=== PATIENT | female | born 1980 | race Caucasian/White ===

== ENCOUNTER 2017-05-04 15:27 | Emergency (ER) | payer BC ==
[~2017-05-04] VITALS: Ht 165.1 cm; Wt 67.1 kg
[2017-05-04] MEDS ORDERED: IV NORMAL SALINE 1000ML BAG 1,000 ML IV SCH (15:35)
[2017-05-04] MEDS ORDERED: ONDANSETRON PF 4 MG/2 ML VIAL. IV ONE (15:45)
[2017-05-04] MEDS ORDERED: FAMOTIDINE 20 MG/2 ML VIAL IVP ONE (15:45)
[2017-05-04 15:58] LABS: BASO # 0.1 x10^3/uL (0.0-0.2); BASO % 1 % (0-3); EOS % 0 % (0-3); HEMATOCRIT 43.1 % (36.0-47.0); LYMPH # 5.2 x10^3/uL (1.0-4.8); LYMPH % 48 % (24-48); MEAN CORPUSCULAR HEMOGLOBIN 35 pg (25-35); MEAN CORPUSCULAR HGB CONC 35 g/dL (31-37); MEAN CORPUSCULAR VOLUME 100 fL (79-100); MONO % 6 % (0-9); NEUT % 45 % (31-73); PLATELET COUNT 473 x10^3/uL (140-400); RED CELL DISTRIBUTION WIDTH 17.5 % (11.5-14.5); WHITE BLOOD COUNT 10.7 x10^3/uL (4.0-11.0)
[2017-05-04] MEDS: fentaNYL PF VIAL 100 MCG/2 ML VIAL IV PRN ×2 (16:02→16:38)
--- NOTE | 2017-05-04 16:15 | PHYS DOC ---
Past Medical History Past Medical History: Hypertension, Other Additional Past Medical Histor: ovarian cysts Past Surgical History: Other Additional Past Surgical Histo: cyst in R breast Alcohol Use: Occasionally Drug Use: None Adult General Chief Complaint Chief Complaint: ABDOMINAL PAIN HPI HPI Patient is a 37 year old female who presents with complaint of right lower quadrant and pelvic pain for the past 2 days. Patient states that the pain came on suddenly and is quite severe at this time. Patient states that she has been having difficulty sleeping secondary to her pain. Patient rates her pain currently is 10 out of 10. Patient denies any associated vomiting, bloody stools , or constipation. Patient states that the pain radiates towards her right pelvis. Patient has not taken any medications to help with symptoms at this time. Patient states that the pain does worsen with movement. Patient went to her primary care physician's office where she underwent a pelvic exam that noted no abnormal discharge but did note cervical motion tenderness. Patient was referred to the emergency department as she was unable to provide a urine sample and they were unable to determine her status. Patient states that they were concerned about possible appendicitis or possible tubal as a cause for her symptoms. The patient states that she is currently on her menstrual cycle. Review of Systems Review of Systems Constitutional: Denies fever or chills [] Eyes: Denies change in visual acuity, redness, or eye pain [] HENT: Denies nasal congestion or sore throat [] Respiratory: Denies cough or shortness of breath [] Cardiovascular: No additional information not addressed in HPI [] GI: Abdominal pain [] : Pelvic pain [] Musculoskeletal: Denies back pain or joint pain [] Integument: Denies rash or skin lesions [] Neurologic: Denies headache, focal weakness or sensory changes [] Current Medications Current Medications Current Medications Medications (Trade) Dose Ordered Sig/Rubin Start Time Stop Time Status Last Admin Dose Admin Famotidine (Pepcid) 20 mg 1X ONCE 05/04/17 15:45 05/04/17 15:46 DC 05/04/17 16:03 20 MG Fentanyl Citrate (Fentanyl 2ml Vial) 50 mcg PRN Q15MIN PRN 05/04/17 15:45 05/04/17 18:26 DC 05/04/17 16:38 50 MCG Info (Do NOT chart on this entry -- for MONITORING) 1 each PRN DAILY PRN 05/04/17 16:45 6/6/17 18:26 DC Iohexol (Omnipaque 240 Mg/ml) 30 ml 1X ONCE 05/04/17 17:00 05/04/17 17:01 DC 05/04/17 17:27 30 ML Iohexol (Omnipaque 300 Mg/ml) 75 ml 1X ONCE 05/04/17 17:00 05/04/17 17:01 DC 05/04/17 17:26 75 ML Ondansetron HCl (Zofran) 4 mg 1X ONCE 05/04/17 15:45 05/04/17 15:46 DC 05/04/17 16:01 4 MG Sodium Chloride 1,000 ml @ 1,000 mls/hr Q1H 05/04/17 15:35 05/04/17 16:34 DC 05/04/17 16:01 1,000 MLS/HR Allergies Allergies Allergies Coded Allergies Type Severity Reaction Last Updated Verified amoxicillin Allergy Intermediate Rash 05/04/17 Yes Physical Exam Physical Exam Constitutional: Alert, afebrile, appears in moderate to severe discomfort. [] HENT: Normocephalic, atraumatic, bilateral external ears normal, oropharynx moist, no oral exudates, nose normal. [] Eyes: PERRLA, EOMI, conjunctiva normal, no discharge. [] Neck: Normal range of motion, no tenderness, supple, no stridor. [] Cardiovascular:Heart rate regular rhythm, no murmur [] Lungs & Thorax: Bilateral breath sounds clear to auscultation [] Abdomen: Bowel sounds normal, soft, right lower quadrant tenderness to palpation with guarding, no rebound tenderness, no masses, no pulsatile masses. [] Skin: Warm, dry, no erythema, no rash. [] Back: No tenderness, no CVA tenderness. [] Extremities: No tenderness, no cyanosis, no clubbing, ROM intact, no edema. [] Neurologic: Alert and oriented X 3, normal motor function, normal sensory function, no focal deficits noted. [] Current Patient Data Vital Signs Vital Signs Date Time Temp Pulse Resp B/P (MAP) Pulse Ox O2 Delivery O2 Flow Rate FiO2 05/04/17 18:17 88 16 119/71 (87) 97 Room Air 05/04/17 15:34 98.5 98.5 Lab Values Laboratory Tests Test 05/04/17 13:50 White Blood Count 10.7 x10^3/uL (4.0-11.0) Red Blood Count 4.30 x10^6/uL (3.50-5.40) Hemoglobin 15.0 g/dL (12.0-15.5) Hematocrit 43.1 % (36.0-47.0) Mean Corpuscular Volume 100 fL (79-100) Mean Corpuscular Hemoglobin 35 pg (25-35) Mean Corpuscular Hemoglobin Concent 35 g/dL (31-37) Red Cell Distribution Width 17.5 % (11.5-14.5) H Platelet Count 473 x10^3/uL (140-400) H Neutrophils (%) (Auto) 45 % (31-73) Lymphocytes (%) (Auto) 48 % (24-48) Monocytes (%) (Auto) 6 % (0-9) Eosinophils (%) (Auto) 0 % (0-3) Basophils (%) (Auto) 1 % (0-3) Neutrophils # (Auto) 4.8 x10^3uL (1.8-7.7) Lymphocytes # (Auto) 5.2 x10^3/uL (1.0-4.8) H Monocytes # (Auto) 0.7 x10^3/uL (0.0-1.1) Eosinophils # (Auto) 0.0 x10^3/uL (0.0-0.7) Basophils # (Auto) 0.1 x10^3/uL (0.0-0.2) Sodium Level 142 mmol/L (136-145) Potassium Level 4.1 mmol/L (3.5-5.1) Chloride Level 102 mmol/L (98-107) Carbon Dioxide Level 20 mmol/L (21-32) L Anion Gap 20 (6-14) H Blood Urea Nitrogen 15 mg/dL (7-20) Creatinine 0.8 mg/dL (0.6-1.0) Estimated GFR (Cockcroft-Gault) 81.2 BUN/Creatinine Ratio 19 (6-20) Glucose Level 117 mg/dL (70-99) H Calcium Level 8.7 mg/dL (8.5-10.1) Total Bilirubin 0.5 mg/dL (0.2-1.0) Aspartate Amino Transferase (AST) 43 U/L (15-37) H Alanine Aminotransferase (ALT) 46 U/L (14-59) Alkaline Phosphatase 62 U/L (46-116) Total Protein 8.1 g/dL (6.4-8.2) Albumin 3.9 g/dL (3.4-5.0) Albumin/Globulin Ratio 0.9 (1.0-1.7) L Lipase 68 U/L (73-393) L Serum Test, Qualitative Negative (NEG) Laboratory Tests 05/04/17 13:50 Laboratory Tests 05/04/17 13:50 EKG EKG Not performed [] Radiology/Procedures Radiology/Procedures [address] [address] IMAGING REPORT Signed PATIENT: WILBERT PEREZ ACCOUNT: [id number] : 1980 LOCATION: ER AGE: 37 SEX: F EXAM STATUS: REG ER ORD. PHYSICIAN: CHITRA NGUYEN MD REASON: right adnexal pain PROCEDURE: PELVIS W/TV Indication right adnexal pain. Initially transabdominal scans were obtained. The initial transabdominal scans were supplemented with transvaginal scans. HCG status is uncertain but for the purposes of this examination will be assumed to be negative. The uterus measures approximately 7.6 x 4.8 x 3.8 cm. Endometrial thickness is approximately 11 mm. No significant free fluid was seen in the pelvis. There is a hypoechoic mass seen associated with the left ovary measuring approximately 2 cm in greatest dimension compatible with a dominant physiologic cyst. The right ovary appeared normal. Flow was seen associated with both ovaries. IMPRESSION: Unremarkable uterus endometrium and right ovary. Dominant physiologic cyst associated with the left ovary. DICTATED and SIGNED BY: MERRITT HOGAN MD DATE: 05/04/171655 CC: CHITRA NGUYEN MD; MELCHOR ALEXANDER MD ~ [address] [address] IMAGING REPORT Signed PATIENT: WILBERT PEREZ ACCOUNT: [id number] : 1980 LOCATION: ER AGE: 37 SEX: F EXAM STATUS: REG ER ORD. PHYSICIAN: CHITRA NGUYEN MD REASON: right lower quadrant pain for 2 days PROCEDURE: CT ABD PELV W/ORAL&IV CONTRAST Exam performed: CT scan of the abdomen and pelvis with contrast Clinical Indication: Severe right lower quadrant pain for 2 days Date of Service: 05/04/2017, comparison: No relevant previous exams available for comparison Technique: Contiguous helical acquisitions are obtained from the lung bases to the pelvis during intravenous administration of [75 mL of Omnipaque 300]. In addition oral contrast was also given. Sagittal and coronal reformatted images were obtained and reviewed. CT abdomen findings: The lung bases appear essentially clear. Visualized heart is normal The liver, spleen ,gall bladder and pancreas appears unremarkable. Both adrenal glands and bilateral kidneys appear normal with symmetric excretion of contrast via both kidneys. The small bowel loops appear nondilated and unremarkable. There is no retroperitoneal lymphadenopathy or mass lesions. Mild wall thickening of the ascending colon including cecum is noted. The ileocecal junction and the terminal ileum appear grossly normal. Visualized appendix is normal. No obvious stranding is seen in the pericecal region. CT pelvis findings: The pelvic bowel loops are nondilated and unremarkable. The urinary bladder is well distended and normal . Uterus is anteverted. No adnexal masses seen. Interrogation of bone windows demonstrates no obvious bony abnormality. Sagittal and coronal reformatted images were obtained and reviewed which demonstrate no additional findings. Impression abdomen and pelvis : 1. Mild wall thickening of the ascending colon including the cecum. Findings may be related to mild colitis. 2. Visualized Appendix is normal. PQRS Compliance Statement: One or more of the following individualized dose reduction techniques were utilized for this examination: 1. Automated exposure control 2. Adjustment of the mA and/or kV according to patient size 3. Use of iterative reconstruction technique Electronically signed by: Brunilda Kulkarni MD (05/04/2017 5:39 PM) DICTATED and SIGNED BY: BRUNILDA KULKARNI MD DATE: 05/04/17 1737 CC: CHITRA NGUYEN MD; MELCHOR ALEXANDER MD ~ [] Course & Med Decision Making Course & Med Decision Making Pertinent Labs and Imaging studies reviewed. (See chart for details) Patient's serum test was negative. Patient had low volume in her bladder as evidenced by bedside and performed and interpreted by myself. Patient underwent ultrasound imaging and CT imaging. The patient had no noted abnormalities of her reproductive organs on ultrasound but did show evidence of ascending colitis. On reevaluation after fluids and pain medication were given, the patient states her symptoms have improved at this time. Patient's blood work is otherwise unremarkable. The patient was given options for admission to the hospital versus outpatient treatment. Patient states that she would like to pursue outpatient treatment at this time which is not unreasonable. Patient was given prescriptions for Flagyl, Levaquin, and [place] for treatment. Advise follow -up in 3-4 days with patient's primary doctor and return to emergency department for any worsening symptoms. Patient voiced understanding and in agreement with treatment plan. Dragon Disclaimer Dragon Disclaimer This electronic medical record was generated, in whole or in part, using a voice recognition dictation system. Departure Departure Impression: Primary Impression: Colitis Disposition: 01 HOME, SELF-CARE Condition: STABLE Patient Instructions: Colitis Additional Instructions: Follow-up with your primary doctor in 3-4 days for reevaluation. Return to emergency department for any worsening symptoms. Scripts Ondansetron (ZOFRAN ODT) 4 Mg Tab.rapdis 1 TAB SL Q8HRS Y for NAUSEA/VOMITING, #15 TAB Prov: CHITRA NGUYEN MD 05/04/17 Hydrocodone/Apap 5-325 (NORCO 5-325 TABLET) 1 Each Tablet 1-2 TAB PO Q4-6HRS Y for PAIN, #30 TAB Prov: CHITRA NGUYEN MD 05/04/17 Metronidazole (FLAGYL) 500 Mg Tablet 500 MG PO TID, #30 TAB Prov: CHITRA NGUYEN MD 05/04/17 Levofloxacin (LEVAQUIN) 750 Mg Tablet 1 TAB PO DAILY, #10 TAB Prov: CHITRA NGUYEN MD 05/04/17 CHITRA NGUYEN MD May 04, 2017 16:15
[2017-05-04 16:32] LABS: CALCIUM 8.7 mg/dL (8.5-10.1); CREATININE 0.8 mg/dL (0.6-1.0); GFR 81.2; POTASSIUM 4.1 mmol/L (3.5-5.1)
[2017-05-04 16:34] LABS: NEG OBC SER NEG; POS OBC SER POS
[2017-05-04 16:38] LABS: ALBUMIN 3.9 g/dL (3.4-5.0); ALBUMIN/GLOBULIN RATIO 0.9 (1.0-1.7); TOTAL BILIRUBIN 0.5 mg/dL (0.2-1.0); TOTAL PROTEIN 8.1 g/dL (6.4-8.2)
[2017-05-04] MEDS ORDERED: CONTRAST GIVEN MC PRN (16:45)
[2017-05-04] MEDS ORDERED: IOHEXOL 300 MG/ML 75 ML VIAL IV ONE (17:00)
[2017-05-04] MEDS ORDERED: IOHEXOL 240 MG/ML 50ML VIAL. PO ONE (17:00)
--- NOTE | 2017-05-04 17:01 | RAD ---
Indication right adnexal pain. Initially transabdominal scans were obtained. The initial transabdominal scans were supplemented with transvaginal scans. HCG status is uncertain but for the purposes of this examination will be assumed to be negative. The uterus measures approximately 7.6 x 4.8 x 3.8 cm. Endometrial thickness is approximately 11 mm. No significant free fluid was seen in the pelvis. There is a hypoechoic mass seen associated with the left ovary measuring approximately 2 cm in greatest dimension compatible with a dominant physiologic cyst. The right ovary appeared normal. Flow was seen associated with both ovaries. IMPRESSION: Unremarkable uterus endometrium and right ovary. Dominant physiologic cyst associated with the left ovary.
--- NOTE | 2017-05-04 17:42 | RAD ---
Exam performed: CT scan of the abdomen and pelvis with contrast Clinical Indication: Severe right lower quadrant pain for 2 days Date of Service: 05/04/2017, comparison: No relevant previous exams available for comparison Technique: Contiguous helical acquisitions are obtained from the lung bases to the pelvis during intravenous administration of [75 mL of Omnipaque 300]. In addition oral contrast was also given. Sagittal and coronal reformatted images were obtained and reviewed. CT abdomen findings: The lung bases appear essentially clear. Visualized heart is normal The liver, spleen ,gall bladder and pancreas appears unremarkable. Both adrenal glands and bilateral kidneys appear normal with symmetric excretion of contrast via both kidneys. The small bowel loops appear nondilated and unremarkable. There is no retroperitoneal lymphadenopathy or mass lesions. Mild wall thickening of the ascending colon including cecum is noted. The ileocecal junction and the terminal ileum appear grossly normal. Visualized appendix is normal. No obvious stranding is seen in the pericecal region. CT pelvis findings: The pelvic bowel loops are nondilated and unremarkable. The urinary bladder is well distended and normal . Uterus is anteverted. No adnexal masses seen. Interrogation of bone windows demonstrates no obvious bony abnormality. Sagittal and coronal reformatted images were obtained and reviewed which demonstrate no additional findings. Impression abdomen and pelvis : 1. Mild wall thickening of the ascending colon including the cecum. Findings may be related to mild colitis. 2. Visualized Appendix is normal. PQRS Compliance Statement: One or more of the following individualized dose reduction techniques were utilized for this examination: 1. Automated exposure control 2. Adjustment of the mA and/or kV according to patient size 3. Use of iterative reconstruction technique Electronically signed by: Brunilda Kulkarni MD (05/04/2017 5:39 PM)
[2017-05-04] MEDS ORDERED: LEVO750T31 PO (18:01)
[2017-05-04] MEDS ORDERED: METR500T PO (18:01)
[2017-05-04] MEDS ORDERED: ONDA4TAB10 SL (18:01)
[2017-05-04] MEDS ORDERED: HYDR-971 PO (18:01)
[2017-05-04 18:17] VITALS: BP 119/71
== END 2017-05-04 18:20 | disposition home or self-care (01) ==
LOC: ER 15:27
DX: K52.9 Noninfective gastroenteritis and colitis, unspecified (principal); I10 Essential (primary) hypertension; Z88.1 Allergy status to other antibiotic agents
CPT/HCPCS: 36415; 74177; 76830; 76856; 80053; 83690; 84703; 85027; 96361; 96374; 96375; 96376; 99285; J2405; J3010; J7030; Q9966; Q9967; S0028

== ENCOUNTER 2017-08-21 19:17 | Inpatient (IN) | payer BC ==
[~2017-08-21] VITALS: Ht 165.1 cm; Wt 61.0 kg
[~2017-08-21 19:17] MED LIST: HYDR-971 PO; LEVO750T31 PO; METR500T PO; ONDA4TAB10 SL
[2017-08-21] MEDS ORDERED: IV NORMAL SALINE 1000ML BAG 1,000 ML IV ONE ×2 (20:45→22:30)
[2017-08-21] MEDS ORDERED: ONDANSETRON PF 4 MG/2 ML VIAL. IV ONE (20:45)
--- NOTE | 2017-08-21 20:46 | PHYS DOC ---
Past Medical History Past Medical History: Anxiety, Hypertension, Pancreatitis, Other Additional Past Medical Histor: ovarian cysts, Colitis, C.Diff Past Surgical History: Other Additional Past Surgical Histo: cyst in R breast Alcohol Use: Heavy Drug Use: None Adult General Chief Complaint Chief Complaint: ABDOMINAL PAIN HPI HPI Patient is a 37 year old F who presents with abdominal pain. Patient states she was treated with antibiotics for a sinus infection develop C. difficile and they just change her antibiotics on Wednesday to . Patient states she's having worsening abdominal pain and diarrhea. Patient denies any nausea or vomiting. Patient denies any fevers. Patient has no previous abdominal surgeries. Patient has no other complaints. Review of Systems Review of Systems GEN: Denies fevers, chills, sweats HEENT: Denies blurred vision, sore throat CV: Denies chest pain RESP: Denies shortness of air, cough GI: Abdominal pain with diarrhea NEURO: Denies confusion, dizziness MSK: Denies weakness, joint pain/swelling Current Medications Current Medications Current Medications Medications (Trade) Dose Ordered Sig/Rubin Start Time Stop Time Status Last Admin Dose Admin Fentanyl Citrate (Fentanyl 2ml Vial) 100 mcg STK-MED ONCE 08/21/17 21:17 08/21/17 21:18 DC Info (Do NOT chart on this entry -- for MONITORING) 1 each PRN DAILY PRN 08/21/17 21:00 08/23/17 20:59 Iohexol (Omnipaque 300 Mg/ml) 75 ml 1X ONCE 08/21/17 21:00 08/21/17 21:01 DC 08/21/17 21:30 75 ML Ondansetron HCl (Zofran) 4 mg 1X ONCE 08/21/17 20:45 08/21/17 20:46 DC 08/21/17 20:48 4 MG Sodium Chloride 1,000 ml @ 1,000 mls/hr 1X ONCE 08/21/17 20:45 08/21/17 21:44 DC 08/21/17 20:48 1,000 MLS/HR Allergies Allergies Allergies Coded Allergies Type Severity Reaction Last Updated Verified amoxicillin Allergy Intermediate Rash 05/04/17 Yes Physical Exam Physical Exam GEN.: No apparent distress. Alert and oriented. HEENT: Head is normocephalic, atraumatic NECK: Supple. LUNGS: CTAB. HEART: RRR, S1, S2 present. Peripheral pulses intact ABDOMEN: Soft, generalized tenderness palpation. Positive bowel sounds. EXTREMITIES: Without any cyanosis. NEUROLOGIC: Normal speech, normal tone PSYCHIATRIC: Normal affect, normal mood. SKIN: No ulcerations Current Patient Data Vital Signs Vital Signs Date Time Temp Pulse Resp B/P (MAP) Pulse Ox O2 Delivery O2 Flow Rate FiO2 08/21/17 20:12 98.6 110 24 146/98 (114) 100 Room Air 98.6 Lab Values Laboratory Tests Test 08/21/17 19:25 08/21/17 20:05 08/21/17 20:11 Urine Collection Type Unknown Urine Color Dk yellow Urine Clarity Cloudy Urine pH 6.5 Urine Specific [place] 1.025 Urine Protein 100 mg/dL (NEG-TRACE) Urine Glucose (UA) Negative mg/dL (NEG) Urine Ketones (Stick) 15 mg/dL (NEG) Urine Blood Large (NEG) Urine Nitrite Negative (NEG) Urine Bilirubin Small (NEG) Urine Urobilinogen Dipstick 1.0 mg/dL (0.2 mg/dL) Urine Leukocyte Esterase Moderate (NEG) Urine RBC 3-5 /HPF (0-2) Urine WBC 1-4 /HPF (0-4) Urine Squamous Epithelial Cells Many /LPF Urine Bacteria Many /HPF (0-FEW) Urine Mucus Marked /LPF White Blood Count 13.0 x10^3/uL (4.0-11.0) H Red Blood Count 4.09 x10^6/uL (3.50-5.40) Hemoglobin 14.3 g/dL (12.0-15.5) Hematocrit 41.5 % (36.0-47.0) Mean Corpuscular Volume 102 fL (79-100) H Mean Corpuscular Hemoglobin 35 pg (25-35) Mean Corpuscular Hemoglobin Concent 34 g/dL (31-37) Red Cell Distribution Width 17.5 % (11.5-14.5) H Platelet Count 212 x10^3/uL (140-400) Neutrophils (%) (Auto) 67 % (31-73) Lymphocytes (%) (Auto) 28 % (24-48) Monocytes (%) (Auto) 5 % (0-9) Eosinophils (%) (Auto) 0 % (0-3) Basophils (%) (Auto) 1 % (0-3) Neutrophils # (Auto) 8.7 x10^3uL (1.8-7.7) H Lymphocytes # (Auto) 3.6 x10^3/uL (1.0-4.8) Monocytes # (Auto) 0.6 x10^3/uL (0.0-1.1) Eosinophils # (Auto) 0.0 x10^3/uL (0.0-0.7) Basophils # (Auto) 0.1 x10^3/uL (0.0-0.2) Sodium Level 137 mmol/L (136-145) Potassium Level 3.7 mmol/L (3.5-5.1) Chloride Level 97 mmol/L (98-107) L Carbon Dioxide Level 17 mmol/L (21-32) L Anion Gap 23 (6-14) H Blood Urea Nitrogen 14 mg/dL (7-20) Creatinine 0.9 mg/dL (0.6-1.0) Estimated GFR (Cockcroft-Gault) 70.8 BUN/Creatinine Ratio 16 (6-20) Glucose Level 99 mg/dL (70-99) Calcium Level 9.1 mg/dL (8.5-10.1) Total Bilirubin 1.0 mg/dL (0.2-1.0) Aspartate Amino Transferase (AST) 72 U/L (15-37) H Alanine Aminotransferase (ALT) 37 U/L (14-59) Alkaline Phosphatase 65 U/L (46-116) Total Protein 7.6 g/dL (6.4-8.2) Albumin 3.9 g/dL (3.4-5.0) Albumin/Globulin Ratio 1.1 (1.0-1.7) Lipase 2317 U/L (73-393) H POC Urine HCG, Qualitative Hcg negative (Negative) Laboratory Tests 08/21/17 20:05 Laboratory Tests 08/21/17 20:05 EKG EKG [] Radiology/Procedures Radiology/Procedures CT scan of the abdomen pelvis shows acute appendicitis[] Course & Med Decision Making Course & Med Decision Making Pertinent Labs and Imaging studies reviewed. (See chart for details) ED course Patient was seen and examined emergency room abdominal workup done with CT scan abdomen pelvis 2209: Patient updated on CT findings consistent with acute panic attack this and will redosed pain medication 5: Discussed CC/HP/PMH with Dr. Castellanos and recommends admit [] [] Dragon Disclaimer Dragon Disclaimer This electronic medical record was generated, in whole or in part, using a voice recognition dictation system. Departure Departure Impression: Primary Impression: Acute pancreatitis Disposition: 09 ADMITTED INPATIENT Admitting Physician: Kena Castellanos Referrals: MELCHOR ALEXANDER MD (PCP) NANCY COLLADO DO Aug 21, 2017 20:46
[2017-08-21] MEDS ORDERED: fentaNYL PF VIAL 100 MCG/2 ML VIAL ONE ×2 (20:53→21:17)
[2017-08-21 20:54] LABS: BASO # 0.1 x10^3/uL (0.0-0.2); BASO % 1 % (0-3); EOS % 0 % (0-3); HEMATOCRIT 41.5 % (36.0-47.0); HEMOGLOBIN 14.3 g/dL (12.0-15.5); LYMPH # 3.6 x10^3/uL (1.0-4.8); LYMPH % 28 % (24-48); MEAN CORPUSCULAR HEMOGLOBIN 35 pg (25-35); MEAN CORPUSCULAR HGB CONC 34 g/dL (31-37); MEAN CORPUSCULAR VOLUME 102 fL (79-100); MONO % 5 % (0-9); NEUT % 67 % (31-73); PLATELET COUNT 212 x10^3/uL (140-400); RED BLOOD COUNT 4.09 x10^6/uL (3.50-5.40); RED CELL DISTRIBUTION WIDTH 17.5 % (11.5-14.5)
[2017-08-21 20:56] LABS: BILIRUBIN,URINE SMALL (NEG); GLUCOSE,URINE NEGATIVE (NEG); NITRITE,URINE NEGATIVE (NEG); PH,URINE 6.5; PROTEIN,URINE 100 mg/dL (NEG-TRACE)
[2017-08-21] MEDS ORDERED: CONTRAST GIVEN MC PRN (21:00)
[2017-08-21] MEDS ORDERED: IOHEXOL 300 MG/ML 75 ML VIAL IV ONE (21:00)
[2017-08-21 21:03] LABS: BACTERIA,URINE MANY /HPF (0-FEW); SQUAMOUS EPITHELIAL CELL,UR MANY /LPF
[2017-08-21 21:05] LABS: CALCIUM 9.1 mg/dL (8.5-10.1); CREATININE 0.9 mg/dL (0.6-1.0); GFR 70.8; POTASSIUM 3.7 mmol/L (3.5-5.1)
[2017-08-21 21:12] LABS: ALBUMIN 3.9 g/dL (3.4-5.0); ALBUMIN/GLOBULIN RATIO 1.1 (1.0-1.7); TOTAL PROTEIN 7.6 g/dL (6.4-8.2)
[2017-08-21] MEDS ORDERED: fentaNYL PF VIAL 100 MCG/2 ML VIAL IV ONE ×2 (21:30→22:30)
--- NOTE | 2017-08-21 21:59 | RAD ---
CT scan of the abdomen and pelvis with contrast 08/21/2017 CLINICAL HISTORY: Abdominal pain. TECHNIQUE: After the intravenous administration of 75 cc of Omnipaque 300, contiguous, 5 mm axial sections were obtained through the abdomen and pelvis. One or more of the following individualized dose reduction techniques were utilized for this study: 1. Automated exposure control. 2. Adjustment of the mA and/or kV according to patient size. 3. Use of iterative reconstruction technique. FINDINGS: Comparison study dated 05/04/2017. Images through the lung bases demonstrate subsegmental atelectasis involving the lingula. The liver parenchyma has a decreased attenuation consistent with fatty infiltration. The liver is mildly enlarged measuring 21 cm in length. The spleen, adrenal glands and kidneys are within normal limits. The body and tail of pancreas are enlarged and somewhat poorly defined. Increased density is seen within the adjacent fat. These findings are consistent with acute pancreatitis. No pancreatic pseudocyst is seen. The abdominal aorta tapers normally. The gallbladder is well-distended. No free fluid or free air is seen within the abdomen. There is no evidence of bowel obstruction. The appendix is well-visualized and is within normal limits. Images through the pelvis demonstrate the urinary bladder distended with urine. No adnexal mass is seen. No free fluid is noted. The osseous structures are unchanged. IMPRESSION: Findings consistent with acute pancreatitis. No pancreatic pseudocyst is seen. Electronically signed by: Leonardo Lizarraga MD (08/21/2017 9:55 PM) [facility]
[2017-08-21] MEDS ORDERED: HYDROmorphone 2 MG/ML VIAL IV ONE (22:30)
[2017-08-21] MEDS ORDERED: ONDANSETRON PF 4 MG/2 ML VIAL. IV PRN (22:30)
[2017-08-21] MEDS ORDERED: diphenhydrAMINE 50 MG/ML VIAL IVP ONE (23:15)
[2017-08-21 23:25] VITALS: BP 170/105
[2017-08-21] MEDS: fentaNYL PF VIAL 100 MCG/2 ML VIAL IV PRN (23:58)
[2017-08-22] MEDS ORDERED: MORPHINE SULFATE 4 MG/ML DISP.SYRIN. IV PRN
[2017-08-22] MEDS: IV NORMAL SALINE 1000ML BAG 1,000 ML IV SCH ×4 (00:17→17:30)
[2017-08-22] MEDS ORDERED: ESCITALOPRAM OXA5 MG PO (00:25)
[2017-08-22] MEDS ORDERED: ALPR0.25 PO (00:25)
[2017-08-22] MEDS ORDERED: diphenhydrAMINE 50 MG/ML VIAL IVP ONE (01:15)
[2017-08-22] MEDS: POTASSIUM CL 20MEQ D5-0.9%NACL 1,000 ML IV SCH ×2 (01:20→17:32)
[2017-08-22] MEDS ORDERED: INFLUENZA VAX SCREEN BY RX. MC PRN (02:00)
[2017-08-22] MEDS: diphenhydrAMINE 50 MG/ML VIAL IVP PRN ×4 (02:38→23:27)
[2017-08-22] MEDS: fentaNYL PF VIAL 100 MCG/2 ML VIAL IV PRN (02:38)
[2017-08-22 03:18] VITALS: BP 139/94
[2017-08-22] MEDS ORDERED: MORPHINE SULFATE 10 MG/ML VIAL. IV PRN (04:00)
[2017-08-22] MEDS ORDERED: HYDROmorphone 2 MG/ML VIAL IV PRN (04:00)
[2017-08-22 06:32] LABS: BASO % 0 % (0-3); EOS % 1 % (0-3); HEMATOCRIT 35.4 % (36.0-47.0); HEMOGLOBIN 12.4 g/dL (12.0-15.5); LYMPH # 5.4 x10^3/uL (1.0-4.8); LYMPH % 36 % (24-48); MEAN CORPUSCULAR HEMOGLOBIN 35 pg (25-35); MEAN CORPUSCULAR HGB CONC 35 g/dL (31-37); MEAN CORPUSCULAR VOLUME 101 fL (79-100); MONO % 4 % (0-9); NEUT % 58 % (31-73); PLATELET COUNT 169 x10^3/uL (140-400); RED BLOOD COUNT 3.52 x10^6/uL (3.50-5.40); RED CELL DISTRIBUTION WIDTH 17.4 % (11.5-14.5); WHITE BLOOD COUNT 14.8 x10^3/uL (4.0-11.0)
[2017-08-22 06:35] LABS: CALCIUM 8.4 mg/dL (8.5-10.1); CREATININE 0.8 mg/dL (0.6-1.0); GFR 81.2; POTASSIUM 3.4 mmol/L (3.5-5.1)
[2017-08-22 07:00] VITALS: BP 146/95
[2017-08-22] MEDS ORDERED: PNEUMOCOCCAL VAX SCREEN BY RX. MC PRN (07:15)
[2017-08-22] MEDS ORDERED: PNEUMOC CONJ VACC 23-VALENT 0.5 ML VIAL. VAX IM ONE (09:00)
[2017-08-22] MEDS ORDERED: FLU VACC QS2017-18 (36MOS+)/PF 0.5 ML SYRINGE. VAX IM ONE (09:00)
[2017-08-22 11:00] VITALS: BP 136/95
[2017-08-22] MEDS ORDERED: POTASSIUM CHLORIDE 20 MEQ TABLET.ER. PO ONE (12:30)
[2017-08-22 15:00] VITALS: BP 152/95
--- NOTE | 2017-08-22 15:10 | PDOC1 ---
History and Physical Date of Admission Date of Admission 08/22/17 Identification/Chief Complaint Chief Complaint abd pain Problems: Source Source: Chart review, Patient History of Present Illness History of Present Illness HPI HPI Patient is a 37 year old F who presents with abdominal pain yesterday. pt was here recently for same reason, was treated for alcoholic pancreatitis. She also had cdiff and on flagyl. she said more abd pain and diarrhea, no N/V. Abd pain at middle abd pain, moderate, no radiation. now pt said no abd pain, no N/V, wants to go home. lipse >2000 in ER. denies heavy drinker to me. Past Medical History Past Medical History anxiety htn pancreatitis Past Surgical History Past Surgical History: No pertinent history Family History Family History: Hypertension Social History Smoke: No ALCOHOL: heavy Drugs: None Current Problem List Problem List Problems Medical Problems: (1) Acute pancreatitis Status: Acute Current Medications Current Medications Current Medications Medications (Trade) Dose Ordered Sig/Rubin Start Time Stop Time Status Last Admin Dose Admin Diphenhydramine HCl (Benadryl) 25 mg PRN Q6HRS PRN 08/22/17 00:00 08/22/17 11:14 25 MG Fentanyl Citrate (Fentanyl 2ml Vial) 50 mcg PRN Q1HR PRN 08/21/17 22:30 08/22/17 03:55 DC 08/22/17 02:38 50 MCG Hydromorphone HCl (Dilaudid) 1 mg PRN Q4HRS PRN 08/22/17 04:00 08/22/17 05:01 1 MG Influenza Virus Vaccine Quadrival (Fluarix Quad [id number] Syringe) 0.5 ml ONCE ONCE 08/22/17 09:00 08/22/17 09:01 DC 08/22/17 09:20 0.5 ML Info (Do NOT chart on this entry -- for MONITORING) 1 each PRN DAILY PRN 08/21/17 21:00 08/23/17 20:59 Info (Do NOT chart on this placeholder) 1 each PRN 1X PRN 08/22/17 02:00 Cancel Iohexol (Omnipaque 300 Mg/ml) 75 ml 1X ONCE 08/21/17 21:00 08/21/17 21:01 DC 08/21/17 21:30 75 ML Morphine Sulfate 6 mg PRN Q2HR PRN 08/22/17 04:00 Ondansetron HCl (Zofran) 4 mg PRN Q8HRS PRN 08/21/17 22:30 08/22/17 22:29 08/22/17 00:13 4 MG Pneumococcal Polyvalent Vaccine (Do NOT chart on this placeholder) 1 each PRN 1X PRN 08/22/17 07:15 UNV Pneumococcal Polyvalent Vaccine (Pneumovax 23) 0.5 ml ONCE ONCE 08/22/17 09:00 08/22/17 09:04 DC 08/22/17 09:22 0.5 ML Potassium Chloride (Klor-Con) 40 meq 1X ONCE 08/22/17 12:30 08/22/17 12:31 DC Sodium Chloride 1,000 ml @ 1,000 mls/hr 1X ONCE 08/21/17 22:30 08/21/17 23:29 DC Allergies Allergies Allergies Coded Allergies Type Severity Reaction Last Updated Verified amoxicillin Allergy Intermediate Rash 05/04/17 Yes ROS Review of System CONSTITUTIONAL: No fever or chills EYES: No recent changes SKIN: No rash or itching CARDIOVASCULAR: No chest pain, syncope, palpitations, or edema RESPIRATORY: No SOB or cough GASTROINTESTINAL: No nausea, vomiting or abdominal pain NEUROLOGICAL: No headaches or weakness ENDOCRINE: No cold or heat intolerance GENITOURINARY: No urgency or frequency of urination MUSCULOSKELETAL: No back pain or joint pain LYMPHATICS: No enlarged lymph nodes PSYCHIATRIC: No anxiety or depression Physical Exam Physical Exam GEN.: No apparent distress. Alert and oriented. HEENT: Head is normocephalic, atraumatic NECK: Supple. LUNGS: Clear to auscultation. HEART: RRR, S1, S2 present. Peripheral pulses intact ABDOMEN: Soft, nontender. Positive bowel sounds. EXTREMITIES: Without any cyanosis. NEUROLOGIC: Normal speech, normal tone PSYCHIATRIC: Normal affect, normal mood. SKIN: No ulcerations Vitals Vitals Vital Signs Date Time Temp Pulse Resp B/P (MAP) Pulse Ox O2 Delivery O2 Flow Rate FiO2 08/22/17 11:00 98.8 95 16 136/95 (109) 97 Nasal Cannula 2.0 98.8 Labs Labs Laboratory Tests Test 08/21/17 19:25 08/21/17 20:05 08/21/17 20:11 08/22/17 06:05 Urine Collection Type Unknown Urine Color Dk yellow Urine Clarity Cloudy Urine pH 6.5 Urine Specific [place] 1.025 Urine Protein 100 mg/dL (NEG-TRACE) Urine Glucose (UA) Negative mg/dL (NEG) Urine Ketones (Stick) 15 mg/dL (NEG) Urine Blood Large (NEG) Urine Nitrite Negative (NEG) Urine Bilirubin Small (NEG) Urine Urobilinogen Dipstick 1.0 mg/dL (0.2 mg/dL) Urine Leukocyte Esterase Moderate (NEG) Urine RBC 3-5 /HPF (0-2) Urine WBC 1-4 /HPF (0-4) Urine Squamous Epithelial Cells Many /LPF Urine Bacteria Many /HPF (0-FEW) Urine Mucus Marked /LPF White Blood Count 13.0 x10^3/uL (4.0-11.0) 14.8 x10^3/uL (4.0-11.0) Red Blood Count 4.09 x10^6/uL (3.50-5.40) 3.52 x10^6/uL (3.50-5.40) Hemoglobin 14.3 g/dL (12.0-15.5) 12.4 g/dL (12.0-15.5) Hematocrit 41.5 % (36.0-47.0) 35.4 % (36.0-47.0) Mean Corpuscular Volume 102 fL (79-100) 101 fL (79-100) Mean Corpuscular Hemoglobin 35 pg (25-35) 35 pg (25-35) Mean Corpuscular Hemoglobin Concent 34 g/dL (31-37) 35 g/dL (31-37) Red Cell Distribution Width 17.5 % (11.5-14.5) 17.4 % (11.5-14.5) Platelet Count 212 x10^3/uL (140-400) 169 x10^3/uL (140-400) Neutrophils (%) (Auto) 67 % (31-73) 58 % (31-73) Lymphocytes (%) (Auto) 28 % (24-48) 36 % (24-48) Monocytes (%) (Auto) 5 % (0-9) 4 % (0-9) Eosinophils (%) (Auto) 0 % (0-3) 1 % (0-3) Basophils (%) (Auto) 1 % (0-3) 0 % (0-3) Neutrophils # (Auto) 8.7 x10^3uL (1.8-7.7) 8.6 x10^3uL (1.8-7.7) Lymphocytes # (Auto) 3.6 x10^3/uL (1.0-4.8) 5.4 x10^3/uL (1.0-4.8) Monocytes # (Auto) 0.6 x10^3/uL (0.0-1.1) 0.6 x10^3/uL (0.0-1.1) Eosinophils # (Auto) 0.0 x10^3/uL (0.0-0.7) 0.1 x10^3/uL (0.0-0.7) Basophils # (Auto) 0.1 x10^3/uL (0.0-0.2) 0.0 x10^3/uL (0.0-0.2) Sodium Level 137 mmol/L (136-145) 134 mmol/L (136-145) Potassium Level 3.7 mmol/L (3.5-5.1) 3.4 mmol/L (3.5-5.1) Chloride Level 97 mmol/L (98-107) 100 mmol/L (98-107) Carbon Dioxide Level 17 mmol/L (21-32) 22 mmol/L (21-32) Anion Gap 23 (6-14) 12 (6-14) Blood Urea Nitrogen 14 mg/dL (7-20) 11 mg/dL (7-20) Creatinine 0.9 mg/dL (0.6-1.0) 0.8 mg/dL (0.6-1.0) Estimated GFR (Cockcroft-Gault) 70.8 81.2 BUN/Creatinine Ratio 16 (6-20) Glucose Level 99 mg/dL (70-99) 94 mg/dL (70-99) Calcium Level 9.1 mg/dL (8.5-10.1) 8.4 mg/dL (8.5-10.1) Total Bilirubin 1.0 mg/dL (0.2-1.0) Aspartate Amino Transf (AST/SGOT) 72 U/L (15-37) Alanine Aminotransferase (ALT/SGPT) 37 U/L (14-59) Alkaline Phosphatase 65 U/L (46-116) Total Protein 7.6 g/dL (6.4-8.2) Albumin 3.9 g/dL (3.4-5.0) Albumin/Globulin Ratio 1.1 (1.0-1.7) Lipase 2317 U/L (73-393) Bedside Urine HCG, Qualitative Hcg negative (Negative) Test 08/22/17 14:20 Lipase 3540 U/L (73-393) Laboratory Tests Test 08/21/17 19:25 08/21/17 20:05 08/21/17 20:11 08/22/17 06:05 Urine Collection Type Unknown Urine Color Dk yellow Urine Clarity Cloudy Urine pH 6.5 Urine Specific [place] 1.025 Urine Protein 100 mg/dL (NEG-TRACE) Urine Glucose (UA) Negative mg/dL (NEG) Urine Ketones (Stick) 15 mg/dL (NEG) Urine Blood Large (NEG) Urine Nitrite Negative (NEG) Urine Bilirubin Small (NEG) Urine Urobilinogen Dipstick 1.0 mg/dL (0.2 mg/dL) Urine Leukocyte Esterase Moderate (NEG) Urine RBC 3-5 /HPF (0-2) Urine WBC 1-4 /HPF (0-4) Urine Squamous Epithelial Cells Many /LPF Urine Bacteria Many /HPF (0-FEW) Urine Mucus Marked /LPF White Blood Count 13.0 x10^3/uL (4.0-11.0) 14.8 x10^3/uL (4.0-11.0) Red Blood Count 4.09 x10^6/uL (3.50-5.40) 3.52 x10^6/uL (3.50-5.40) Hemoglobin 14.3 g/dL (12.0-15.5) 12.4 g/dL (12.0-15.5) Hematocrit 41.5 % (36.0-47.0) 35.4 % (36.0-47.0) Mean Corpuscular Volume 102 fL (79-100) 101 fL (79-100) Mean Corpuscular Hemoglobin 35 pg (25-35) 35 pg (25-35) Mean Corpuscular Hemoglobin Concent 34 g/dL (31-37) 35 g/dL (31-37) Red Cell Distribution Width 17.5 % (11.5-14.5) 17.4 % (11.5-14.5) Platelet Count 212 x10^3/uL (140-400) 169 x10^3/uL (140-400) Neutrophils (%) (Auto) 67 % (31-73) 58 % (31-73) Lymphocytes (%) (Auto) 28 % (24-48) 36 % (24-48) Monocytes (%) (Auto) 5 % (0-9) 4 % (0-9) Eosinophils (%) (Auto) 0 % (0-3) 1 % (0-3) Basophils (%) (Auto) 1 % (0-3) 0 % (0-3) Neutrophils # (Auto) 8.7 x10^3uL (1.8-7.7) 8.6 x10^3uL (1.8-7.7) Lymphocytes # (Auto) 3.6 x10^3/uL (1.0-4.8) 5.4 x10^3/uL (1.0-4.8) Monocytes # (Auto) 0.6 x10^3/uL (0.0-1.1) 0.6 x10^3/uL (0.0-1.1) Eosinophils # (Auto) 0.0 x10^3/uL (0.0-0.7) 0.1 x10^3/uL (0.0-0.7) Basophils # (Auto) 0.1 x10^3/uL (0.0-0.2) 0.0 x10^3/uL (0.0-0.2) Sodium Level 137 mmol/L (136-145) 134 mmol/L (136-145) Potassium Level 3.7 mmol/L (3.5-5.1) 3.4 mmol/L (3.5-5.1) Chloride Level 97 mmol/L (98-107) 100 mmol/L (98-107) Carbon Dioxide Level 17 mmol/L (21-32) 22 mmol/L (21-32) Anion Gap 23 (6-14) 12 (6-14) Blood Urea Nitrogen 14 mg/dL (7-20) 11 mg/dL (7-20) Creatinine 0.9 mg/dL (0.6-1.0) 0.8 mg/dL (0.6-1.0) Estimated GFR (Cockcroft-Gault) 70.8 81.2 BUN/Creatinine Ratio 16 (6-20) Glucose Level 99 mg/dL (70-99) 94 mg/dL (70-99) Calcium Level 9.1 mg/dL (8.5-10.1) 8.4 mg/dL (8.5-10.1) Total Bilirubin 1.0 mg/dL (0.2-1.0) Aspartate Amino Transf (AST/SGOT) 72 U/L (15-37) Alanine Aminotransferase (ALT/SGPT) 37 U/L (14-59) Alkaline Phosphatase 65 U/L (46-116) Total Protein 7.6 g/dL (6.4-8.2) Albumin 3.9 g/dL (3.4-5.0) Albumin/Globulin Ratio 1.1 (1.0-1.7) Lipase 2317 U/L (73-393) Bedside Urine HCG, Qualitative Hcg negative (Negative) Test 08/22/17 14:20 Lipase 3540 U/L (73-393) VTE Prophylaxis Ordered VTE Prophylaxis Devices: Yes VTE Pharmacological Prophylaxi: Yes Assessment/Plan Assessment/Plan acute recurrent pancreatitis, likely 2/2 ETOH htn anxiety recent cdiff colitis hypokalemia leukocytosis, SIRS alcoholism plan; npo ivf replete k pain control drug tox dvt, gi ppx check cdiff pt wants to go home, told her cannot since higher lipase, if do , will be AMA admit 2 nights SILVIO PRETTY MD Aug 22, 2017 15:10
[2017-08-22] MEDS ORDERED: HYDROcodone/APAP 5/325MG 1 TAB TABLET PO PRN (15:15)
[2017-08-22] MEDS ORDERED: traMADol 50 MG TABLET PO PRN (15:15)
[2017-08-22] MEDS ORDERED: ONDANSETRON PF 4 MG/2 ML VIAL. IV PRN (15:15)
[2017-08-22] MEDS ORDERED: ACETAMINOPHEN 325 MG TABLET. PO PRN (15:15)
[2017-08-22] MEDS ORDERED: hydrALAZINE 20 MG/ML VIAL. IVP PRN (15:15)
[2017-08-22] MEDS ORDERED: DOCUSATE SODIUM 100 MG CAPSULE. PO PRN (15:15)
[2017-08-22] MEDS ORDERED: IV NORMAL SALINE 1000ML BAG 1,000 ML IV SCH (16:00)
[2017-08-22] MEDS: ENOXAPARIN 40 MG/0.4 ML SYRINGE. SQ SCH (16:00)
[2017-08-22 19:25] VITALS: BP 164/89
[2017-08-22] MEDS: MORPHINE SULFATE 4 MG/ML DISP.SYRIN. IV PRN ×2 (20:23→23:19)
[2017-08-22] MEDS ORDERED: FAMOTIDINE 20 MG/2 ML VIAL IVP SCH (21:00)
[2017-08-22] MEDS: ALPRAZolam 0.25 MG TABLET PO PRN (21:20)
[2017-08-22 23:28] VITALS: BP 129/90
[2017-08-23] MEDS: HYDROmorphone 2 MG/ML VIAL IV PRN ×3 (01:25→21:51)
[2017-08-23 03:30] VITALS: BP 130/92
[2017-08-23] MEDS: diphenhydrAMINE 50 MG/ML VIAL IVP PRN ×3 (04:32→22:34)
[2017-08-23] MEDS: MORPHINE SULFATE 4 MG/ML DISP.SYRIN. IV PRN ×2 (04:33→17:55)
[2017-08-23 07:00] VITALS: BP 125/85
[2017-08-23 07:09] LABS: BASO % 0 % (0-3); EOS % 1 % (0-3); HEMOGLOBIN 11.2 g/dL (12.0-15.5); LYMPH # 2.6 x10^3/uL (1.0-4.8); LYMPH % 31 % (24-48); MEAN CORPUSCULAR HEMOGLOBIN 36 pg (25-35); MEAN CORPUSCULAR HGB CONC 36 g/dL (31-37); MEAN CORPUSCULAR VOLUME 101 fL (79-100); MONO % 3 % (0-9); NEUT % 65 % (31-73); PLATELET COUNT 129 x10^3/uL (140-400); RED BLOOD COUNT 3.08 x10^6/uL (3.50-5.40); RED CELL DISTRIBUTION WIDTH 16.8 % (11.5-14.5); WHITE BLOOD COUNT 8.6 x10^3/uL (4.0-11.0)
[2017-08-23 07:34] LABS: CALCIUM 8.4 mg/dL (8.5-10.1); CREATININE 0.6 mg/dL (0.6-1.0); GFR 113.1; POTASSIUM 3.6 mmol/L (3.5-5.1)
[2017-08-23] MEDS ORDERED: CITALOPRAM 10 MG TABLET. PO SCH (09:00)
--- NOTE | 2017-08-23 09:20 | PDOC ---
PROGRESS NOTES Chief Complaint Chief Complaint Pancreatitis ASSESSMENT AND PLAN: 1. Pancreatitis: acute, recurrent, prob EtOH related. Lipase worsening. monitor, check Ca, LDH 2. EtOH dependence: start CIWA 3. Hypokalemia: repleted 4. Hyponatremia: mild. on NS IV 5. Leukocytosis: resolved 6. Anemia: macrocytic. most likely 2/2 EtOH. check B12, folate 7. thrombocytopenia: suspect EtOH related. monitor closely. 7. HTN: stable 8. Anxiety: on celexa, increase dose to 20mg 9. Prophylaxis: Pepcid, incease to bid. lovenox 10. recent C.diff colitis History of Present Illness History of Present Illness feels fine, no pain or nausea. wants to go home Vitals Vitals Vital Signs Date Time Temp Pulse Resp B/P (MAP) Pulse Ox O2 Delivery O2 Flow Rate FiO2 08/23/17 07:45 Room Air 08/23/17 07:00 98.6 89 18 125/85 (98) 95 98.6 08/23/17 03:30 2.0 Physical Exam General: Alert, Oriented X3, Cooperative, No acute distress Heart: Regular rate Lungs: Clear Abdomen: Normal bowel sounds Extremities: No clubbing Skin: No rashes Labs LABS Laboratory Tests Test 08/22/17 14:20 08/23/17 06:35 Lipase 3540 U/L (73-393) 5007 U/L (73-393) White Blood Count 8.6 x10^3/uL (4.0-11.0) Red Blood Count 3.08 x10^6/uL (3.50-5.40) Hemoglobin 11.2 g/dL (12.0-15.5) Hematocrit 31.0 % (36.0-47.0) Mean Corpuscular Volume 101 fL (79-100) Mean Corpuscular Hemoglobin 36 pg (25-35) Mean Corpuscular Hemoglobin Concent 36 g/dL (31-37) Red Cell Distribution Width 16.8 % (11.5-14.5) Platelet Count 129 x10^3/uL (140-400) Neutrophils (%) (Auto) 65 % (31-73) Lymphocytes (%) (Auto) 31 % (24-48) Monocytes (%) (Auto) 3 % (0-9) Eosinophils (%) (Auto) 1 % (0-3) Basophils (%) (Auto) 0 % (0-3) Neutrophils # (Auto) 5.5 x10^3uL (1.8-7.7) Lymphocytes # (Auto) 2.6 x10^3/uL (1.0-4.8) Monocytes # (Auto) 0.3 x10^3/uL (0.0-1.1) Eosinophils # (Auto) 0.1 x10^3/uL (0.0-0.7) Basophils # (Auto) 0.0 x10^3/uL (0.0-0.2) Sodium Level 134 mmol/L (136-145) Potassium Level 3.6 mmol/L (3.5-5.1) Chloride Level 100 mmol/L (98-107) Carbon Dioxide Level 24 mmol/L (21-32) Anion Gap 10 (6-14) Blood Urea Nitrogen 2 mg/dL (7-20) Creatinine 0.6 mg/dL (0.6-1.0) Estimated GFR (Cockcroft-Gault) 113.1 Glucose Level 128 mg/dL (70-99) Calcium Level 8.4 mg/dL (8.5-10.1) ISAI MARCUM MD Aug 23, 2017 09:20
[2017-08-23 09:50] LABS: DIRECT BILIRUBIN 0.3 mg/dL (0.0-0.2); TOTAL BILIRUBIN 0.7 mg/dL (0.2-1.0)
[2017-08-23] MEDS: POTASSIUM CL 20MEQ D5-0.9%NACL 1,000 ML IV SCH ×4 (09:52→22:51)
[2017-08-23] MEDS: FAMOTIDINE 20 MG/2 ML VIAL IVP SCH ×2 (09:52→21:48)
[2017-08-23 09:59] LABS: FOLATE 8.89 ng/ml (3.2-20.0)
[2017-08-23 11:00] VITALS: BP 117/86
[2017-08-23 15:00] VITALS: BP 121/88
[2017-08-23] MEDS: ENOXAPARIN 40 MG/0.4 ML SYRINGE. SQ SCH (15:58)
[2017-08-23 19:15] VITALS: BP 126/87
[2017-08-23 22:38] VITALS: BP 129/94
[2017-08-24] MEDS: ALPRAZolam 0.25 MG TABLET PO PRN ×2 (01:04→23:53)
[2017-08-24 03:00] VITALS: BP 148/86
[2017-08-24 06:30] LABS: BASO % 0 % (0-3); EOS % 2 % (0-3); HEMATOCRIT 28.4 % (36.0-47.0); LYMPH # 3.1 x10^3/uL (1.0-4.8); LYMPH % 38 % (24-48); MEAN CORPUSCULAR HEMOGLOBIN 36 pg (25-35); MEAN CORPUSCULAR HGB CONC 35 g/dL (31-37); MEAN CORPUSCULAR VOLUME 101 fL (79-100); MONO % 5 % (0-9); NEUT % 55 % (31-73); PLATELET COUNT 121 x10^3/uL (140-400); RED CELL DISTRIBUTION WIDTH 16.7 % (11.5-14.5); WHITE BLOOD COUNT 8.2 x10^3/uL (4.0-11.0)
[2017-08-24] MEDS: POTASSIUM CL 20MEQ D5-0.9%NACL 1,000 ML IV SCH ×3 (06:34→20:04)
[2017-08-24 06:49] LABS: ALBUMIN 2.7 g/dL (3.4-5.0); ALBUMIN/GLOBULIN RATIO 0.9 (1.0-1.7); CALCIUM 8.4 mg/dL (8.5-10.1); CREATININE 0.5 mg/dL (0.6-1.0); GFR 139.6; POTASSIUM 3.8 mmol/L (3.5-5.1); TOTAL BILIRUBIN 0.4 mg/dL (0.2-1.0); TOTAL PROTEIN 5.7 g/dL (6.4-8.2)
[2017-08-24 07:00] VITALS: BP 139/92
[2017-08-24] MEDS: CITALOPRAM 20 MG TABLET. PO SCH (08:23)
[2017-08-24] MEDS: FAMOTIDINE 20 MG/2 ML VIAL IVP SCH ×2 (08:25→21:11)
[2017-08-24 11:00] VITALS: BP 133/91
[2017-08-24] MEDS: HYDROmorphone 2 MG/ML VIAL IV PRN (14:12)
[2017-08-24 15:00] VITALS: BP 137/94
--- NOTE | 2017-08-24 15:21 | PDOC ---
PROGRESS NOTES Chief Complaint Chief Complaint Pancreatitis ASSESSMENT AND PLAN: 1. Pancreatitis: acute, recurrent, prob EtOH related. Lipase finally improving. CA stable. monitor labs, remains NPO. 2. EtOH dependence: on CIWA, no W/D sx 3. Hypokalemia: repleted 4. Hyponatremia: resolved. on NS IV 5. Leukocytosis: resolved 6. Anemia: macrocytic. most likely 2/2 EtOH. B12, folate WNL 7. thrombocytopenia: suspect EtOH related. monitor closely. 7. HTN: stable 8. Anxiety: on celexa, increased to 20mg 9. Prophylaxis: Pepcid bid. lovenox 10. recent C.diff colitis. no acute issues. History of Present Illness History of Present Illness remains asymptomatic Vitals Vitals Vital Signs Date Time Temp Pulse Resp B/P (MAP) Pulse Ox O2 Delivery O2 Flow Rate FiO2 08/24/17 14:12 Room Air 08/24/17 11:00 96.4 77 18 133/91 (105) 95 96.4 08/23/17 22:38 2.0 Physical Exam General: Alert, Oriented X3, Cooperative, No acute distress Heart: Regular rate Lungs: Clear Abdomen: Normal bowel sounds Extremities: No clubbing Skin: No rashes Labs LABS Laboratory Tests Test 08/24/17 06:10 White Blood Count 8.2 x10^3/uL (4.0-11.0) Red Blood Count 2.80 x10^6/uL (3.50-5.40) Hemoglobin 10.0 g/dL (12.0-15.5) Hematocrit 28.4 % (36.0-47.0) Mean Corpuscular Volume 101 fL (79-100) Mean Corpuscular Hemoglobin 36 pg (25-35) Mean Corpuscular Hemoglobin Concent 35 g/dL (31-37) Red Cell Distribution Width 16.7 % (11.5-14.5) Platelet Count 121 x10^3/uL (140-400) Neutrophils (%) (Auto) 55 % (31-73) Lymphocytes (%) (Auto) 38 % (24-48) Monocytes (%) (Auto) 5 % (0-9) Eosinophils (%) (Auto) 2 % (0-3) Basophils (%) (Auto) 0 % (0-3) Neutrophils # (Auto) 4.5 x10^3uL (1.8-7.7) Lymphocytes # (Auto) 3.1 x10^3/uL (1.0-4.8) Monocytes # (Auto) 0.4 x10^3/uL (0.0-1.1) Eosinophils # (Auto) 0.2 x10^3/uL (0.0-0.7) Basophils # (Auto) 0.0 x10^3/uL (0.0-0.2) Sodium Level 137 mmol/L (136-145) Potassium Level 3.8 mmol/L (3.5-5.1) Chloride Level 104 mmol/L (98-107) Carbon Dioxide Level 24 mmol/L (21-32) Anion Gap 9 (6-14) Blood Urea Nitrogen 1 mg/dL (7-20) Creatinine 0.5 mg/dL (0.6-1.0) Estimated GFR (Cockcroft-Gault) 139.6 BUN/Creatinine Ratio 2 (6-20) Glucose Level 121 mg/dL (70-99) Calcium Level 8.4 mg/dL (8.5-10.1) Total Bilirubin 0.4 mg/dL (0.2-1.0) Aspartate Amino Transf (AST/SGOT) 58 U/L (15-37) Alanine Aminotransferase (ALT/SGPT) 34 U/L (14-59) Alkaline Phosphatase 76 U/L (46-116) Total Protein 5.7 g/dL (6.4-8.2) Albumin 2.7 g/dL (3.4-5.0) Albumin/Globulin Ratio 0.9 (1.0-1.7) Lipase 3001 U/L (73-393) ISAI MARCUM MD Aug 24, 2017 15:21
[2017-08-24] MEDS: ENOXAPARIN 40 MG/0.4 ML SYRINGE. SQ SCH (15:26)
[2017-08-24] MEDS: diphenhydrAMINE 50 MG/ML VIAL IVP PRN ×2 (15:26→21:34)
[2017-08-24 19:00] VITALS: BP 141/89
[2017-08-24] MEDS ORDERED: HYDROmorphone 2 MG/ML VIAL IV PRN (19:00)
[2017-08-24] MEDS ORDERED: MORPHINE SULFATE 4 MG/ML DISP.SYRIN. IV PRN (19:00)
[2017-08-24 23:00] VITALS: BP 149/96
[2017-08-25 03:00] VITALS: BP 118/79
[2017-08-25 05:21] LABS: BASO % 0 % (0-3); EOS % 2 % (0-3); HEMATOCRIT 29.9 % (36.0-47.0); HEMOGLOBIN 10.7 g/dL (12.0-15.5); LYMPH # 3.3 x10^3/uL (1.0-4.8); LYMPH % 49 % (24-48); MEAN CORPUSCULAR HEMOGLOBIN 36 pg (25-35); MEAN CORPUSCULAR HGB CONC 36 g/dL (31-37); MEAN CORPUSCULAR VOLUME 101 fL (79-100); MONO % 6 % (0-9); NEUT % 43 % (31-73); PLATELET COUNT 141 x10^3/uL (140-400); RED BLOOD COUNT 2.96 x10^6/uL (3.50-5.40); WHITE BLOOD COUNT 6.8 x10^3/uL (4.0-11.0)
[2017-08-25 05:50] LABS: ALBUMIN 2.7 g/dL (3.4-5.0); ALBUMIN/GLOBULIN RATIO 0.8 (1.0-1.7); CALCIUM 8.7 mg/dL (8.5-10.1); CREATININE 0.6 mg/dL (0.6-1.0); GFR 113.1; POTASSIUM 3.5 mmol/L (3.5-5.1); TOTAL BILIRUBIN 0.4 mg/dL (0.2-1.0); TOTAL PROTEIN 5.9 g/dL (6.4-8.2)
[2017-08-25 07:00] VITALS: BP 138/97
[2017-08-25] MEDS: CITALOPRAM 20 MG TABLET. PO SCH ×2 (09:00→11:51)
[2017-08-25 11:00] VITALS: BP 129/81
[2017-08-25] MEDS: FAMOTIDINE 20 MG/2 ML VIAL IVP SCH (11:52)
[2017-08-25] MEDS: POTASSIUM CL 20MEQ D5-0.9%NACL 1,000 ML IV SCH (11:58)
[2017-08-25] MEDS ORDERED: ESCITALOPRAM OX10 MG PO (12:40)
--- NOTE | 2017-08-25 23:11 | DS ---
DATE OF DISCHARGE: 08/25/2017 CHIEF COMPLAINT: Abdominal pain, pancreatitis. HOSPITAL COURSE: The patient is a 37-year-old alcoholic, who presented to the Emergency Room with abdominal pain. She had been treated for same not too long ago. With significantly elevated lipases, she was admitted and placed on n.p.o. status, given IV medications. Pain actually resolved fairly quickly. However, her lipase continued to rise for a couple of more days before decreasing. When she was deemed stable, p.o. intake was reestablished which she tolerated without any difficulties. She was therefore discharged to home and advised to abstain from alcohol. PHYSICAL EXAM: VS: stable, afebrile GEN: A&O, NAD CV: RRR PULM: clear to auscultation bilaterally ABD: BS+, SNT EXTR: no edema DISCHARGE DIAGNOSIS: Pancreatitis. DISCHARGE DISPOSITION: To home. DISCHARGE CONDITION: Improved. DISCHARGE MEDICATIONS: Please refer to MAR. DISCHARGE INSTRUCTIONS: The patient will follow up with PCP in 1 week. ISAI MARCUM MD DR: UR/nts JOB#: [id number] / [id number] MELCHOR Abreu MD
== END 2017-08-25 13:55 | disposition home or self-care (01) | DRG 439 ==
LOC: ER 19:17 → 4 NORTH 22:32
PROVIDERS: ADMIT Internal Medicine; ATTEND Internal Medicine
DX: K85.90 Acute pancreatitis without necrosis or infection, unspecified (principal); R65.10 Systemic inflammatory response syndrome (SIRS) of non-infectious origin without acute organ dysfunction; D69.6 Thrombocytopenia, unspecified; E87.1 Hypo-osmolality and hyponatremia; K86.1 Other chronic pancreatitis; D53.9 Nutritional anemia, unspecified; I10 Essential (primary) hypertension; D72.829 Elevated white blood cell count, unspecified; E87.6 Hypokalemia; F10.20 Alcohol dependence, uncomplicated; F41.9 Anxiety disorder, unspecified; Z88.1 Allergy status to other antibiotic agents; Z82.49 Family history of ischemic heart disease and other diseases of the circulatory system
CPT/HCPCS: 36415; 74177; 80048; 80053; 80076; 81001; 81025; 82607; 82746; 83036; 83615; 83690; 85025; 87086; 87324; 90686; 90732; 96374; 96375; J1170; J1200; J1650; J2270; J2405; J3010; J7030; Q9967; S0028; 99285-25

== ENCOUNTER 2017-10-15 17:46 | Emergency (ER) | payer BC ==
[~2017-10-15] VITALS: Ht 165.1 cm; Wt 61.2 kg
[~2017-10-15 17:46] MED LIST changes: +ALPR0.25 PO; +ESCITALOPRAM OX10 MG PO; +ESCITALOPRAM OXA5 MG PO
[2017-10-15] MEDS ORDERED: ONDANSETRON PF 4 MG/2 ML VIAL. IV ONE (18:30)
[2017-10-15] MEDS ORDERED: IV NORMAL SALINE 1000ML BAG 1,000 ML IV ONE (18:30)
[2017-10-15 18:32] LABS: BASO # 0.1 x10^3/uL (0.0-0.2); BASO % 1 % (0-3); EOS % 0 % (0-3); HEMATOCRIT 43.3 % (36.0-47.0); HEMOGLOBIN 14.9 g/dL (12.0-15.5); LYMPH # 6.3 x10^3/uL (1.0-4.8); LYMPH % 45 % (24-48); MEAN CORPUSCULAR HEMOGLOBIN 35 pg (25-35); MEAN CORPUSCULAR HGB CONC 35 g/dL (31-37); MEAN CORPUSCULAR VOLUME 100 fL (79-100); MONO % 8 % (0-9); NEUT % 46 % (31-73); PLATELET COUNT 422 x10^3/uL (140-400); RED BLOOD COUNT 4.31 x10^6/uL (3.50-5.40); RED CELL DISTRIBUTION WIDTH 16.2 % (11.5-14.5); WHITE BLOOD COUNT 14.1 x10^3/uL (4.0-11.0)
[2017-10-15 18:33] LABS: BILIRUBIN,URINE NEGATIVE (NEG); GLUCOSE,URINE NEGATIVE (NEG); NITRITE,URINE NEGATIVE (NEG); PH,URINE 6.5; PROTEIN,URINE NEGATIVE (NEG-TRACE); UROBILINOGEN,URINE 0.2 mg/dL (0.2 mg/dL)
--- NOTE | 2017-10-15 18:38 | PHYS DOC ---
Past Medical History Past Medical History: Anxiety, Hypertension, Kidney Stone, Pancreatitis, Other Additional Past Medical Histor: ovarian cysts, Colitis, Cholecystitis Past Surgical History: Other Additional Past Surgical Histo: cyst in R breast Alcohol Use: Heavy Drug Use: None Adult General Chief Complaint Chief Complaint: NAUSEA/VOMITING/DIARRHA HPI HPI Patient is a 37 year old F who presents with suprapubic abdominal pain for the past week. Patient states she was admitted at [facility] and was discharged last Wednesday for UTI. Patient states since discharge she still having significant amount of pain even know she finished the Bactrim that he was discharged home with. Patient denies any fevers. Patient states she's had some nausea without vomiting. Patient still complains of dysuria. Patient has no chest pain or shortness of breath. Review of Systems Review of Systems GEN: Denies fevers, chills, sweats HEENT: Denies blurred vision, sore throat CV: Denies chest pain RESP: Denies shortness of air, cough GI: Abdominal pain with nausea NEURO: Denies confusion, dizziness MSK: Denies weakness, joint pain/swelling All other systems were reviewed and found to be within normal limits, except as documented in this note. Current Medications Current Medications Current Medications Medications (Trade) Dose Ordered Sig/Rubin Start Time Stop Time Status Last Admin Dose Admin Fentanyl Citrate (Fentanyl 2ml Vial) 50 mcg 1X ONCE 10/15/17 18:45 10/15/17 18:46 DC 10/15/17 18:50 50 MCG Info (Do NOT chart on this entry -- for MONITORING) 1 each PRN DAILY PRN 10/15/17 18:45 10/17/17 18:44 Iohexol (Omnipaque 300 Mg/ml) 76 ml 1X ONCE 10/15/17 18:45 10/15/17 18:46 DC 10/15/17 18:55 76 ML Ondansetron HCl (Zofran) 4 mg 1X ONCE 10/15/17 18:30 10/15/17 18:31 DC 10/15/17 18:32 4 MG Sodium Chloride 1,000 ml @ 1,000 mls/hr 1X ONCE 10/15/17 18:30 10/15/17 19:29 DC 10/15/17 18:32 1,000 MLS/HR Allergies Allergies Allergies Coded Allergies Type Severity Reaction Last Updated Verified amoxicillin Allergy Intermediate Rash 6/6/17 Yes Physical Exam Physical Exam GEN.: No apparent distress. Alert and oriented. HEENT: Head is normocephalic, atraumatic NECK: Supple. LUNGS: CTAB. HEART: RRR, S1, S2 present. Peripheral pulses intact ABDOMEN: Soft, tender to palpation suprapubic, no rebound tenderness, no guarding, no abdominal distention. Positive bowel sounds. EXTREMITIES: Without any cyanosis. NEUROLOGIC: Normal speech, normal tone PSYCHIATRIC: Normal affect, normal mood. SKIN: No ulcerations Current Patient Data Vital Signs Vital Signs Date Time Temp Pulse Resp B/P (MAP) Pulse Ox O2 Delivery O2 Flow Rate FiO2 10/15/17 18:50 Room Air 10/15/17 18:30 94 26 110/69 (83) 99 10/15/17 18:00 98.0 98.0 Lab Values Laboratory Tests Test 10/15/17 18:00 10/15/17 18:03 10/15/17 18:15 Urine Collection Type Unknown Urine Color Straw Urine Clarity Clear Urine pH 6.5 Urine Specific [place] <=1.005 Urine Protein Negative mg/dL (NEG-TRACE) Urine Glucose (UA) Negative mg/dL (NEG) Urine Ketones (Stick) Negative mg/dL (NEG) Urine Blood Small (NEG) Urine Nitrite Negative (NEG) Urine Bilirubin Negative (NEG) Urine Urobilinogen Dipstick 0.2 mg/dL (0.2 mg/dL) Urine Leukocyte Esterase Moderate (NEG) Urine RBC Occ /HPF (0-2) Urine WBC 5-10 /HPF (0-4) Urine Squamous Epithelial Cells Many /LPF Urine Bacteria Few /HPF (0-FEW) Urine Opiates Screen Neg (NEG) Urine Methadone Screen Neg (NEG) Urine Barbiturates Neg (NEG) Urine Phencyclidine Screen Neg (NEG) Urine Amphetamine/Methamphetamine Neg (NEG) Urine Benzodiazepines Screen Neg (NEG) Urine Cocaine Screen Neg (NEG) Urine Cannabinoids Screen Neg (NEG) Urine Ethyl Alcohol Pos (NEG) POC Urine HCG, Qualitative Hcg negative (Negative) White Blood Count 14.1 x10^3/uL (4.0-11.0) H Red Blood Count 4.31 x10^6/uL (3.50-5.40) Hemoglobin 14.9 g/dL (12.0-15.5) Hematocrit 43.3 % (36.0-47.0) Mean Corpuscular Volume 100 fL (79-100) Mean Corpuscular Hemoglobin 35 pg (25-35) Mean Corpuscular Hemoglobin Concent 35 g/dL (31-37) Red Cell Distribution Width 16.2 % (11.5-14.5) H Platelet Count 422 x10^3/uL (140-400) H Neutrophils (%) (Auto) 46 % (31-73) Lymphocytes (%) (Auto) 45 % (24-48) Monocytes (%) (Auto) 8 % (0-9) Eosinophils (%) (Auto) 0 % (0-3) Basophils (%) (Auto) 1 % (0-3) Neutrophils # (Auto) 6.4 x10^3uL (1.8-7.7) Lymphocytes # (Auto) 6.3 x10^3/uL (1.0-4.8) H Monocytes # (Auto) 1.2 x10^3/uL (0.0-1.1) H Eosinophils # (Auto) 0.0 x10^3/uL (0.0-0.7) Basophils # (Auto) 0.1 x10^3/uL (0.0-0.2) Sodium Level 138 mmol/L (136-145) Potassium Level 3.4 mmol/L (3.5-5.1) L Chloride Level 101 mmol/L (98-107) Carbon Dioxide Level 22 mmol/L (21-32) Anion Gap 15 (6-14) H Blood Urea Nitrogen 16 mg/dL (7-20) Creatinine 0.9 mg/dL (0.6-1.0) Estimated GFR (Cockcroft-Gault) 70.8 BUN/Creatinine Ratio 18 (6-20) Glucose Level 172 mg/dL (70-99) H Calcium Level 8.5 mg/dL (8.5-10.1) Total Bilirubin 0.5 mg/dL (0.2-1.0) Aspartate Amino Transferase (AST) 95 U/L (15-37) H Alanine Aminotransferase (ALT) 54 U/L (14-59) Alkaline Phosphatase 76 U/L (46-116) Total Protein 7.4 g/dL (6.4-8.2) Albumin 3.8 g/dL (3.4-5.0) Albumin/Globulin Ratio 1.1 (1.0-1.7) Lipase 218 U/L (73-393) Ethyl Alcohol Level 329 mg/dL (0-10) H Laboratory Tests 10/15/17 18:15 Laboratory Tests 10/15/17 18:15 EKG EKG [] Radiology/Procedures Radiology/Procedures CT scan abdomen pelvis IMPRESSION: 1. No acute findings. 2. Interval resolution of previously seen peripancreatic inflammatory changes. 3. Relatively stable gastrohepatic recess lymph node, likely reactive.[] Course & Med Decision Making Course & Med Decision Making Pertinent Labs and Imaging studies reviewed. (See chart for details) ED course: Patient was seen and examined emergency room CBC, CMP, UA, CT scan abdomen pelvis, urine drug screen, alcohol level were ordered Patient was updated on UA results and since she still having dysuria we'll go ahead and treat with antibiotic despite the large amount of squamous cells in the urine sample, discussed patient's alcohol use with her and patient states she's not alcohol, like help. Patient was updated on CT findings, patient ready go home. Family is here to drive her home. MDM: After reviewing the chart, CC/HPI/PMH, physical exam, [lab results], [ radiological results], I do not believe the patient is septic or has intra- abdominal emergency warranting further workup and/or admission at this time. Patient be treated with antibiotics for possible UTI. Gave patient resources for her alcoholism. Additional verbal discharge instructions were provided to the patient and that if symptoms get worse or any new symptoms arise that are worrisome to the patient she is to return to the emergency room immediately [] Dragon Disclaimer Dragon Disclaimer This electronic medical record was generated, in whole or in part, using a voice recognition dictation system. Departure Departure Impression: Primary Impression: Abdominal pain Additional Impressions: Alcohol abuse UTI (urinary tract infection) Disposition: 01 HOME, SELF-CARE Condition: IMPROVED Referrals: MELCHOR ALEXANDER MD (PCP) Patient Instructions: Abdominal Pain (Nonspecific), Alcohol Problems, Urinary Tract Infection, Rukx-ce-Xewt Additional Instructions: Please follow-up with your family physician in the next one to 2 days return if symptoms increase Scripts Cephalexin (KEFLEX) 500 Mg Capsule 1 CAP PO TID for 5 Days, #15 CAP Prov: NANCY COLLADO DO 10/15/17 Problem Qualifiers NANCY COLALDO DO Oct 15, 2017 18:38
[2017-10-15 18:41] LABS: BACTERIA,URINE FEW /HPF (0-FEW); RBC,URINE OCC /HPF (0-2); SQUAMOUS EPITHELIAL CELL,UR MANY /LPF
[2017-10-15 18:42] LABS: CALCIUM 8.5 mg/dL (8.5-10.1); CREATININE 0.9 mg/dL (0.6-1.0); GFR 70.8; POTASSIUM 3.4 mmol/L (3.5-5.1)
[2017-10-15] MEDS ORDERED: CONTRAST GIVEN MC PRN (18:45)
[2017-10-15] MEDS ORDERED: fentaNYL PF VIAL 100 MCG/2 ML VIAL IV ONE (18:45)
[2017-10-15] MEDS ORDERED: IOHEXOL 300 MG/ML 100ML VIAL. IV ONE (18:45)
[2017-10-15 18:46] LABS: BARBITURATES NEG (NEG); BENZODIAZEPINES NEG (NEG); CANNABINOIDS NEG (NEG); COCAINE NEG (NEG); METHADONE NEG (NEG); OPIATES NEG (NEG); PHENCYCLIDINE NEG (NEG)
[2017-10-15 18:47] LABS: ALBUMIN 3.8 g/dL (3.4-5.0); ALBUMIN/GLOBULIN RATIO 1.1 (1.0-1.7); TOTAL BILIRUBIN 0.5 mg/dL (0.2-1.0); TOTAL PROTEIN 7.4 g/dL (6.4-8.2)
--- NOTE | 2017-10-15 19:50 | RAD ---
Indication:SUPRAPUBIC PAIN H.O C SETION INJ 75ML [id number] PREV SENT TECHNIQUE: CT abdomen and pelvis with 75 ml of Isovue-370 with multiplanar reformats. COMPARISON: Study from 08/21/2017 FINDINGS: Heart is normal in size. No pericardial or pleural effusion. Clear lung bases. Liver is normal in morphology without focal lesion. Spleen is not enlarged and show no focal lesion. No radiopaque gallstones. No pericholecystic fluid or gallbladder wall thickening. Pancreas within normal limits without peripancreatic inflammatory changes or focal pancreatic lesion. Adrenal glands show no focal mass. No nephrolithiasis or hydronephrosis. No suspicious renal lesion. No retroperitoneal or pelvic adenopathy. 1.2 x 1.0 cm gastrohepatic recess lymph node. No bowel obstruction. No free intraperitoneal air. Uterus is anteverted. Bladder show no focal lesion or radiopaque stone. No solid adnexal lesions. Bilateral ovaries are visualized. No inguinal adenopathy. No suspicious bony lesion. IMPRESSION: 1. No acute findings. 2. Interval resolution of previously seen peripancreatic inflammatory changes. 3. Relatively stable gastrohepatic recess lymph node, likely reactive. Electronically signed by: Emmanuel Nino DO (10/15/2017 7:47 PM) [facility]
[2017-10-15] MEDS ORDERED: CEPH-264 PO (20:12)
[2017-10-15 20:30] VITALS: BP 104/60
== END 2017-10-15 20:35 | disposition home or self-care (01) ==
LOC: ER 17:46
DX: N39.0 Urinary tract infection, site not specified (principal); F10.10 Alcohol abuse, uncomplicated; I10 Essential (primary) hypertension; Z87.442 Personal history of urinary calculi; Z88.1 Allergy status to other antibiotic agents
CPT/HCPCS: 36415; 74177; 80053; 80307; 81001; 81025; 83690; 85025; 87086; 96361; 96374; 96375; 99285; G0480; J2405; J3010; J7030; Q9967; G0479

== ENCOUNTER 2017-10-16 14:48 | Emergency (ER) | payer BC ==
[~2017-10-16 14:48] MED LIST changes: +CEPH-264 PO
[2017-10-16 14:50] VITALS: BP 108/79
[2017-10-16 15:17] LABS: BARBITURATES NEG (NEG); BENZODIAZEPINES NEG (NEG); CANNABINOIDS NEG (NEG); COCAINE NEG (NEG); METHADONE NEG (NEG); OPIATES NEG (NEG); PHENCYCLIDINE NEG (NEG)
[2017-10-16 15:25] LABS: BASO # 0.1 x10^3/uL (0.0-0.2); BASO % 1 % (0-3); EOS % 1 % (0-3); HEMATOCRIT 39.2 % (36.0-47.0); HEMOGLOBIN 13.6 g/dL (12.0-15.5); LYMPH # 4.5 x10^3/uL (1.0-4.8); LYMPH % 45 % (24-48); MEAN CORPUSCULAR HEMOGLOBIN 35 pg (25-35); MEAN CORPUSCULAR HGB CONC 35 g/dL (31-37); MEAN CORPUSCULAR VOLUME 100 fL (79-100); MONO % 7 % (0-9); NEUT % 46 % (31-73); PLATELET COUNT 381 x10^3/uL (140-400); RED BLOOD COUNT 3.93 x10^6/uL (3.50-5.40); RED CELL DISTRIBUTION WIDTH 16.5 % (11.5-14.5); WHITE BLOOD COUNT 9.9 x10^3/uL (4.0-11.0)
[2017-10-16 15:44] LABS: ETHANOL 281 mg/dL (0-10)
[2017-10-16 16:01] LABS: CALCIUM 7.7 mg/dL (8.5-10.1); CREATININE 0.9 mg/dL (0.6-1.0); GFR 70.8; POTASSIUM 3.6 mmol/L (3.5-5.1)
[2017-10-16 16:07] LABS: ALBUMIN 3.1 g/dL (3.4-5.0); TOTAL BILIRUBIN 0.4 mg/dL (0.2-1.0); TOTAL PROTEIN 6.1 g/dL (6.4-8.2)
--- NOTE | 2017-10-16 19:34 | PHYS DOC ---
Past Medical History Past Medical History: Anxiety, Hypertension, Kidney Stone, Pancreatitis, Other Additional Past Medical Histor: ovarian cysts, Colitis, Cholecystitis Past Surgical History: Other Additional Past Surgical Histo: cyst in R breast Alcohol Use: Heavy Drug Use: None Adult General Chief Complaint Chief Complaint: MULTIPLE COMPLAINTS HPI HPI Patient is a 37 year old history of chronic alcohol abuse who presents with request for inpatient medical detox. Patient relapsed on September 28 has been drinking daily. Was evaluated in the emergency department yesterday for an possible urinary tract infection nausea and vomiting. Denies SI or HI. No other symptoms or complaints. [] Review of Systems Review of Systems Symptoms as per history of present illness. All other review symptoms are negative. All other systems were reviewed and found to be within normal limits, except as documented in this note. Allergies Allergies Allergies Coded Allergies Type Severity Reaction Last Updated Verified amoxicillin Allergy Intermediate Rash 05/04/17 Yes Physical Exam Physical Exam Constitutional: Well developed, well nourished, no acute distress, non-toxic appearance. [] HENT: Normocephalic, atraumatic, bilateral external ears normal, oropharynx moist, nose normal. [] Eyes: PERRLA, conjunctiva injected[] Neck: Normal range of motion. [] Lungs & Thorax: Bilateral breath sounds clear to auscultation [] Extremities: No tenderness, ROM intact, no edema. [] Neurologic: Alert and oriented, normal motor function, walks without steady . [] Psychologic: Affect normal, judgement normal, mood normal. [] Current Patient Data Vital Signs Vital Signs Date Time Temp Pulse Resp B/P (MAP) Pulse Ox O2 Delivery O2 Flow Rate FiO2 10/16/17 14:50 97.8 94 18 108/79 (89) 100 Room Air 97.8 Lab Values Laboratory Tests Test 10/16/17 15:01 10/16/17 15:15 Urine Opiates Screen Neg (NEG) Urine Methadone Screen Neg (NEG) Urine Barbiturates Neg (NEG) Urine Phencyclidine Screen Neg (NEG) Urine Amphetamine/Methamphetamine Neg (NEG) Urine Benzodiazepines Screen Neg (NEG) Urine Cocaine Screen Neg (NEG) Urine Cannabinoids Screen Neg (NEG) Urine Ethyl Alcohol Pos (NEG) White Blood Count 9.9 x10^3/uL (4.0-11.0) Red Blood Count 3.93 x10^6/uL (3.50-5.40) Hemoglobin 13.6 g/dL (12.0-15.5) Hematocrit 39.2 % (36.0-47.0) Mean Corpuscular Volume 100 fL (79-100) Mean Corpuscular Hemoglobin 35 pg (25-35) Mean Corpuscular Hemoglobin Concent 35 g/dL (31-37) Red Cell Distribution Width 16.5 % (11.5-14.5) H Platelet Count 381 x10^3/uL (140-400) Neutrophils (%) (Auto) 46 % (31-73) Lymphocytes (%) (Auto) 45 % (24-48) Monocytes (%) (Auto) 7 % (0-9) Eosinophils (%) (Auto) 1 % (0-3) Basophils (%) (Auto) 1 % (0-3) Neutrophils # (Auto) 4.6 x10^3uL (1.8-7.7) Lymphocytes # (Auto) 4.5 x10^3/uL (1.0-4.8) Monocytes # (Auto) 0.7 x10^3/uL (0.0-1.1) Eosinophils # (Auto) 0.1 x10^3/uL (0.0-0.7) Basophils # (Auto) 0.1 x10^3/uL (0.0-0.2) Sodium Level 136 mmol/L (136-145) Potassium Level 3.6 mmol/L (3.5-5.1) Chloride Level 103 mmol/L (98-107) Carbon Dioxide Level 20 mmol/L (21-32) L Anion Gap 13 (6-14) Blood Urea Nitrogen 16 mg/dL (7-20) Creatinine 0.9 mg/dL (0.6-1.0) Estimated GFR (Cockcroft-Gault) 70.8 BUN/Creatinine Ratio 18 (6-20) Glucose Level 144 mg/dL (70-99) H Calcium Level 7.7 mg/dL (8.5-10.1) L Total Bilirubin 0.4 mg/dL (0.2-1.0) Aspartate Amino Transferase (AST) 292 U/L (15-37) H Alanine Aminotransferase (ALT) 120 U/L (14-59) H Alkaline Phosphatase 63 U/L (46-116) Total Protein 6.1 g/dL (6.4-8.2) L Albumin 3.1 g/dL (3.4-5.0) L Albumin/Globulin Ratio 1.0 (1.0-1.7) Acetaminophen Level 3.0 mcg/ml (10-30) L Acetaminophen Last Dose Date Acetaminophen Last Dose Time Ethyl Alcohol Level 281 mg/dL (0-10) H Laboratory Tests 10/16/17 15:15 Laboratory Tests 10/16/17 15:15 EKG EKG [] Radiology/Procedures Radiology/Procedures [] Course & Med Decision Making Course & Med Decision Making Pertinent Labs and Imaging studies reviewed. (See chart for details) [Patient offered work up in the EDand declines care at this facility. Dragon Disclaimer Dragon Disclaimer This electronic medical record was generated, in whole or in part, using a voice recognition dictation system. Departure Departure Impression: Primary Impression: Left against medical advice Disposition: ADMITTED INPATIENT Condition: STABLE FTÁIMAIVTA BRIGGS Oct 16, 2017 19:34
--- NOTE | 2017-10-17 08:54 | EKG ---
[facility] [address] [place] [address] Test Date: 2017-10-16 Test Time: 15:21:53 Pat Name: WILBERT PEREZ Department: Room: Gender: F Retail Manager: : 1980 Requested By: VITA SHINE Order Number: [id number] Reading MD: Jimbo Thomas MD Measurements Intervals [place] Rate: 83 P: 53 W[place]: 138 QRS: 79 QRSD: 78 T: 60 QT: 360 QTc: 424 Interpretive Statements SINUS RHYTHM Electronically Signed On 10-19-2017 11:42:45 [employer] by Jimbo Thomas MD
== END 2017-10-16 16:00 | disposition left against medical advice (07) ==
LOC: ER 14:48
DX: F10.10 Alcohol abuse, uncomplicated (principal); I10 Essential (primary) hypertension; Z87.442 Personal history of urinary calculi; Z88.1 Allergy status to other antibiotic agents
CPT/HCPCS: 36415; 80053; 80307; 85025; 93005; 99285; G0480; G0479

== ENCOUNTER → 2018-02-09 | Outpatient (CLI) | payer BC | END | disposition home or self-care (01) | LOC: KCIC MAMMO 10:45 | DX: N64.4 Mastodynia (principal); N63.20 Unspecified lump in the left breast, unspecified quadrant; N63.41 Unspecified lump in right breast, subareolar | CPT/HCPCS: 76641; 77066 ==

== ENCOUNTER 2018-03-03 06:33 | Day surgery (SDC) | payer BC ==
[2018-03-03] MEDS ORDERED: HYDROmorphone 2 MG/ML VIAL IV (07:00)
[2018-03-03] MEDS ORDERED: fentaNYL PF VIAL 100 MCG/2 ML VIAL IV (07:00)
[2018-03-03] MEDS ORDERED: LIDOCAINE 1% PF 2 ML VIAL. ID (07:00)
[2018-03-03] MEDS ORDERED: MORPHINE SULFATE 4 MG/ML DISP.SYRIN. IV (07:00)
[2018-03-03] MEDS ORDERED: ONDANSETRON PF 4 MG/2 ML VIAL. IV (07:00)
[2018-03-03 07:13] LABS: NEG OBC UR NEG; POS OBC UR POS; U PREG PATIENT NEGATIVE (NEG)
[2018-03-03] MEDS: IV RINGERS,LACTATED 1000ML 1,000 ML IV (07:21)
[2018-03-03] MEDS: LIDOCAINE WITH 8.4% SOD BICARB 3 ML DISP.SYRIN. INJ (08:30)
[2018-03-03] MEDS ORDERED: LIDOCAINE 1% PF 5 ML VIAL. (08:50)
[2018-03-03] MEDS ORDERED: fentaNYL PF VIAL 100 MCG/2 ML VIAL (08:50)
[2018-03-03] MEDS ORDERED: PROPOFOL 20 ML IV (08:50)
[2018-03-03] MEDS ORDERED: DEXAMETHASONE SOD PHOS 20 MG/5 ML VIAL. (09:45)
[2018-03-03] MEDS ORDERED: SEVOFLURANE 31 TO 60 MINUTES. IH (09:45)
[2018-03-03] MEDS ORDERED: PHENYLEPHRINE 10 MG/ML VIAL. (09:58)
[2018-03-03] MEDS ORDERED: FAMOTIDINE 20 MG/2 ML VIAL (09:58)
[2018-03-03] MEDS ORDERED: ONDANSETRON PF 4 MG/2 ML VIAL. (10:03)
[2018-03-03] MEDS: [UNRECOGNIZED DRUG - OTHER] INJ (10:18)
[2018-03-03] MEDS: fentaNYL PF VIAL 100 MCG/2 ML VIAL IV ×2 (10:37→10:54)
[2018-03-03] MEDS: PROCHLORPERAZINE 10 MG/2 ML VIAL. IV (10:38)
[2018-03-03] MEDS: diphenhydrAMINE 50 MG/ML VIAL IVP (10:46)
[2018-03-03] MEDS: HYDROcodone/APAP 5/325MG 1 TAB TABLET PO (11:14)
== END 2018-03-03 11:57 | disposition home or self-care (01) ==
LOC: SURG 06:33
DX: D24.2 Benign neoplasm of left breast (principal); N60.32 Fibrosclerosis of left breast; N60.42 Mammary duct ectasia of left breast; N60.82 Other benign mammary dysplasias of left breast; F41.9 Anxiety disorder, unspecified; F32.9 Major depressive disorder, single episode, unspecified; F10.10 Alcohol abuse, uncomplicated; G47.33 Obstructive sleep apnea (adult) (pediatric); Z98.890 Other specified postprocedural states; Z80.3 Family history of malignant neoplasm of breast; F17.210 Nicotine dependence, cigarettes, uncomplicated; Z88.0 Allergy status to penicillin
CPT/HCPCS: 19125; 19281; 76098; 81025; 88305; J0780; J1100; J1200; J1956; J2405; J2704; J3010; J3490; S0028